=== PATIENT | female | born 1990 | race Caucasian/White ===

== ENCOUNTER 2017-04-27 23:39 | Emergency (ER) | payer OTHER ==
[~2017-04-27] VITALS: Ht 165.1 cm; Wt 70.0 kg
[~2017-04-27 23:39] MED LIST: NECON1 TA1 PO; NORCO1 TA1 PO
[2017-04-27] MEDS ORDERED: PRENATABS RX PO (23:55)
[2017-04-28 00:16] LABS: URINE BILIRUBIN - DIPSTICK NEGATIVE (NEGATIVE); URINE BLOOD DIPSTICK LARGE (NEGATIVE); URINE COLOR YELLOW; URINE GLUCOSE - DIPSTICK NEGATIVE (NEGATIVE); URINE KETONE NEGATIVE (NEGATIVE); URINE LEUK ESTERASE SMALL (Negative); URINE NITRITE - DIPSTICK NEGATIVE (Negative); URINE PROTEIN - DIPSTICK 100 mg/dL (NEG-TRACE); URINE SPECIFIC GRAVITY >=1.030; URINE UROBILINOGEN - DIPSTICK 0.2 E.U./dL (0.2)
[2017-04-28 00:25] LABS: URINE CLARITY SL CLOUDY
[2017-04-28 00:33] LABS: URINE BACTERIA MODERATE hpf; URINE WBC 50-100 WBC/hpf (0-5)
[2017-04-28] MEDS ORDERED: MACROBID100 MG PO (00:40)
[2017-04-28] MEDS ORDERED: AMOXICILLIN500 MG PO (00:40)
[2017-04-28 00:51] VITALS: BP 137/64
== END 2017-04-28 00:57 | disposition home or self-care (01) | DRG 781 ==
LOC: ED 23:39
PROVIDERS: Emergency Medicine
DX: O23.43 Unspecified infection of urinary tract in pregnancy, third trimester (principal); O99.513 Diseases of the respiratory system complicating pregnancy, third trimester; J45.909 Unspecified asthma, uncomplicated; Z3A.28 28 weeks gestation of pregnancy

== ENCOUNTER 2018-04-13 14:51 | Emergency (ER) | payer OTHER ==
[~2018-04-13] VITALS: Ht 157.5 cm; Wt 73.2 kg
[~2018-04-13 14:51] MED LIST changes: +AMOXICILLIN500 MG PO; +MACROBID100 MG PO; +PRENATABS RX PO
[2018-04-13 16:25] VITALS: BP 121/73
== END 2018-04-13 16:25 | disposition home or self-care (01) | DRG 605 ==
LOC: ED 14:51
DX: S80.02XA Contusion of left knee, initial encounter (principal); J45.909 Unspecified asthma, uncomplicated; W01.0XXA Fall on same level from slipping, tripping and stumbling without subsequent striking against object, initial encounter; Y92.008 Other place in unspecified non-institutional (private) residence as the place of occurrence of the external cause
CPT/HCPCS: L1830

== ENCOUNTER → 2018-05-21 | Outpatient (REF) | END | disposition home or self-care (01) | DRG 951 | LOC: LAB 10:22 | DX: Z02.1 Encounter for pre-employment examination (principal) ==

== ENCOUNTER 2020-06-09 16:39 | Emergency (ER) | payer BC ==
[~2020-06-09] VITALS: Ht 167.6 cm; Wt 78.6 kg
[2020-06-09] MEDS ORDERED: MOTRIN200 MG PO (16:55)
[2020-06-09] MEDS ORDERED: HYDROCO/APAP1 TA9 PO (17:40)
[2020-06-09 18:05] VITALS: BP 129/76
== END 2020-06-09 18:05 | disposition home or self-care (01) | DRG 563 ==
LOC: ED 16:39
DX: S92.421A Displaced fracture of distal phalanx of right great toe, initial encounter for closed fracture (principal); J45.909 Unspecified asthma, uncomplicated; W55.19XA Other contact with horse, initial encounter; Y92.009 Unspecified place in unspecified non-institutional (private) residence as the place of occurrence of the external cause

== ENCOUNTER 2023-05-10 15:56 | Emergency (ER) | payer OTHER ==
[~2023-05-10] VITALS: Ht 167.6 cm; Wt 79.0 kg
[~2023-05-10 15:56] MED LIST changes: +HYDROCO/APAP1 TA9 PO; +MOTRIN200 MG PO
[2023-05-10 17:20] VITALS: BP 127/71
[2023-05-10 17:47] LABS: URINE BLOOD DIPSTICK Trace-lysed (NEGATIVE); URINE GLUCOSE - DIPSTICK Negative (NEGATIVE); URINE KETONE Negative (NEGATIVE); URINE LEUK ESTERASE Negative (NEGATIVE); URINE NITRITE - DIPSTICK Negative (Negative); URINE PROTEIN - DIPSTICK 30 mg/dL (NEG-TRACE); URINE SPECIFIC GRAVITY >=1.030; URINE UROBILINOGEN - DIPSTICK 0.2 E.U./dL (0.2)
[2023-05-10 17:54] LABS: URINE COLOR Yellow
[2023-05-10 17:55] LABS: URINE RBC 0-2 RBC/hpf (0-5); URINE WBC 0-2 WBC/hpf (0-5)
[2023-05-10 17:56] LABS: URINE BACTERIA FEW hpf; URINE MUCUS MODERATE hpf (NONE-FEW); URINE SQUAMOUS EPITHELIAL CELL MODERATE EPI/hpf (0-FEW)
[2023-05-10] MEDS ORDERED: PHENAZOPYRIDIN100 M1 PO (18:07)
[2023-05-10] MEDS ORDERED: KEFLEX500 MG PO (18:07)
[2023-05-11] MEDS ORDERED: KEFLEX500 MG PO (11:25)
[2023-05-11] MEDS ORDERED: PHENAZOPYRIDIN100 M1 PO (11:25)
== END 2023-05-10 18:26 | disposition home or self-care (01) | DRG 690 ==
LOC: ED 15:56
PROVIDERS: Nurse Practitioner
DX: N39.0 Urinary tract infection, site not specified (principal); Z87.440 Personal history of urinary (tract) infections